=== PATIENT | female | born 1975 ===

== ENCOUNTER 2024-07-14 08:21 | Day surgery (SDC) | payer MEDICAID ==
[~2024-07-14] VITALS: Ht 162.6 cm; Wt 81.2 kg
[2024-07-14 09:30] LABS: HCG,QUAL RESULT NEGATIVE (NEGATIVE)
[2024-07-14] MEDS ORDERED: MIDAZOLAM HCL 5 MG/5 ML VIAL ONE (09:46)
[2024-07-14] MEDS ORDERED: fentaNYL CITRATE/PF 100 MCG/2 ML AMP ONE (09:46)
[2024-07-14] MEDS ORDERED: DIPHENHYDRAMINE INJ 50 MG/ML VIAL ONE (11:00)
[2024-07-14] MEDS ORDERED: ONDANSETRON HCL 4 MG/2 ML VIAL ONE (11:00)
[2024-07-14] MEDS ORDERED: ONDANSETRON HCL 4 MG/2 ML VIAL IVP ONE (11:22)
[2024-07-14 13:14] VITALS: O2SAT 98
[2024-07-14 15:30] VITALS: BP_SYST 132; PULSE 73; RESP 21
== END 2024-07-14 12:31 | disposition home or self-care (01) ==
LOC: SDS 08:21 → SMU 08:33 → SDS 12:31
PROVIDERS: ATTEND Internal Medicine
DX: K59.09 Other constipation (principal); K29.50 Unspecified chronic gastritis without bleeding; K21.9 Gastro-esophageal reflux disease without esophagitis; K64.8 Other hemorrhoids; I10 Essential (primary) hypertension; E11.9 Type 2 diabetes mellitus without complications; Z79.84 Long term (current) use of oral hypoglycemic drugs; Z79.899 Other long term (current) drug therapy; Z90.49 Acquired absence of other specified parts of digestive tract
CPT/HCPCS: 45378; 43239; 84703; 82948; 88305; 88312; 88313; 99152; 99153; G0378; J2250; J2405; J3010; J1200